=== PATIENT | male | born 1980 | race African-American/Black ===

== ENCOUNTER 2021-06-04 18:55 | Emergency (ER) | payer OTHER, SELFPAY ==
[2021-06-04 19:47] VITALS: BP 144/87; PULSE 72; RESP 18; TEMP 36.4; O2SAT 100
[2021-06-04 21:55] VITALS: BP 134/84; PULSE 66; RESP 17; TEMP 36.3; O2SAT 100
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
[2021-06-04 22:23] VITALS: BP 138/74; PULSE 68; RESP 15; O2SAT 100
== END 2021-06-04 22:23 | disposition home or self-care (01) ==
PROVIDERS: Emergency Provider Emergency Medicine
DX: S06.0X0A Concussion without loss of consciousness, initial encounter (principal); V49.50XA Passenger injured in collision with unspecified motor vehicles in traffic accident, initial encounter
CPT/HCPCS: 99282

== ENCOUNTER 2022-03-24 18:28 | Emergency (ER) | payer SELFPAY ==
[2022-03-24 18:37] VITALS: BP 142/81; PULSE 79; RESP 16; TEMP 36.5; O2SAT 99
--- NOTE | 2022-03-24 18:44 | ED.SKABFB ---
HPI - Skin/Abscess/Foreign Bdy General Chief complaint: Skin/Abscess/Foreign Body Stated complaint: rash Time Seen by Provider: 03/24/22 18:44 Source: patient Mode of arrival: ambulatory Limitations: no limitations History of Present Illness HPI narrative: 41-year-old male presented for complaint of rash to both forearms for about 10 days. States is spreading to the back of his neck and behind his knees. He endorses small bumps that are itchy and burning. He denies known contact with poison elis or any changes to soap, detergent, lotion etc. He states he cut grass about 3 weeks ago. Denies lip/tongue or throat swelling, trouble breathing/wheezing. Denies associated fever, nausea, vomiting, and diarrhea, dizziness fevers or chills. MD complaint: rash Related Data Allergies Allergy/AdvReac Type Severity Reaction Status Date / Time No Known Allergies Allergy Verified 03/24/22 18:29 Review of Systems Review of Systems: CONSTITUTIONAL: Denies body aches, fever, chills, or sweats. EYES: Denies visual changes, redness, or discharge. ENT: Denies rhinorrhea, congestion, sore throat, or otalgia. CARDIOVASCULAR: Denies chest pain, palpitations, or edema. RESPIRATORY: Denies cough or dyspnea. GASTROINTESTINAL: Denies abdominal pain, nausea, vomiting, or diarrhea. GENITOURINARY: Denies dysuria or hematuria. SKIN: rash, itching, wounds. MUSCULOSKELETAL: Denies back pain, joint pain, or myalgia. NEUROLOGIC: Denies headache, numbness, tingling, or weakness. PSYCH: Denies depression or anxiety. PMFSH Comments At time of signature, I have reviewed and agree with nursing past medical, surgical, social and family history unless otherwise noted. Please see nursing chart for further information. There is no relevant family history pertinent to the presenting complaint Exam Narrative: GENERAL: Well-appearing EYES: conjunctivae clear, and EOMI. ENT: Mucous membranes moist. Oropharynx without edema, erythema or lesions. CHEST: Clear to auscultation. No respiratory distress. HEART: Regular rate and rhythm. SKIN: Warm, dry. Patches of erythematous papular rash to dorsal surface of bilateral arms, sparing hands and deltoids c/w contact dermatitis. Rash noted to neck at collar. Appears to be at sun exposed areas. No oozing. NEURO: Alert and oriented x3. Course Course Emergency Course: Patient is aware of diagnosis, understands and agrees to treatment plan. Anticipatory guidance given. Patient agrees to follow-up as directed and is aware of reasons to seek care at the emergency department. Portions of this record may have been created with voice recognition software Level of Care: Express Care Visit Vital Signs Vital signs: Vital Signs Temperature 97.7 F 03/24/22 18:37 Pulse Rate 79 03/24/22 18:37 Respiratory Rate 16 03/24/22 18:37 Blood Pressure 142/81 H 03/24/22 18:37 Pulse Oximetry 99 03/24/22 18:37 Oxygen Delivery Room Air 03/24/22 18:37 Temperature 97.7 F 03/24/22 18:37 Pulse Rate 79 03/24/22 18:37 Respiratory Rate 16 03/24/22 18:37 Blood Pressure 142/81 H 03/24/22 18:37 Pulse Oximetry 99 03/24/22 18:37 Oxygen Delivery Room Air 03/24/22 18:37 Reviewed MDM - Skin/Abscess/Foreign Bdy MDM Narrative Medical decision making narrative: Does not appear at this time to be erythema multiforme, bullous, SJS, TEN Patient looks well, nontoxic afebrile; no respiratory compromise, appropriate for initial outpatient treatment; discussed the importance of follow-up, patient agrees. Advised to avoid the hot outdoor weather for about 2 days. Instructed patient to go to nearest ER immediately for any worsening symptoms including but not limited to: fever, spreading rash, pain, sore throat, headache, dizziness, chest pain, trouble breathing, or any symptoms concerning to the patient. Differential Diagnosis Differential diagnosis: Likely abscess of skin or subcutaneous tissue, urticaria, herpes zoster
== END 2022-03-24 18:57 | disposition home or self-care (01) ==
PROVIDERS: Emergency Provider Nurse Practitioner Family
DX: L23.9 Allergic contact dermatitis, unspecified cause (principal)
CPT/HCPCS: 99213; G0463

== ENCOUNTER 2022-05-13 18:33 | Emergency (ER) | payer SELFPAY ==
--- NOTE | 2022-05-13 18:34 | ED.SKABFB ---
HPI - Skin/Abscess/Foreign Bdy General Chief complaint: Skin/Abscess/Foreign Body Stated complaint: rash Time Seen by Provider: 05/13/22 19:02 Source: patient and RN notes reviewed Mode of arrival: ambulatory Limitations: no limitations History of Present Illness HPI narrative: 41-year-old male presents concern for generalized itchy rash. Reports rash to both arms, legs, face, neck. He reports it is itchy. He reports that started a week ago and continues to get worse. Reports he had a similar rash 1 month ago that was treated with steroids. He denies any swollen lips, swollen tongue, trouble breathing. He reports he changed his soap to Dove soap, he has not changed his laundry detergent to a free and clear laundry detergent. 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 MD complaint: rash Related Data Allergies Allergy/AdvReac Type Severity Reaction Status Date / Time No Known Allergies Allergy Verified 03/24/22 18:29 Review of Systems Review of Systems: CONSTITUTIONAL: Denies malaise, chills, sweats, or fever. EYES: Denies redness, or discharge. ENT: Denies rhinorrhea, congestion, swollen lips, swollen tongue CARDIOVASCULAR: Denies chest pain, palpitations, or edema. RESPIRATORY: Denies cough or dyspnea. GASTROINTESTINAL: Denies abdominal pain, nausea, vomiting SKIN: Reports itchy rash on both arms, legs, face, neck MUSCULOSKELETAL: Denies joint pain or myalgia. NEUROLOGIC: Denies headache. All systems reviewed & are unremarkable except as noted in HPI and below PMFSH Comments At time of signature, agree with nursing past medical, surgical, social and family history. There is no relevant family history pertinent to the presenting complaint Exam Narrative: GENERAL: Well-appearing, well-nourished, and in no acute distress. HEAD: Normocephalic, atraumatic. EYES: PERRLA, conjunctivae clear, and EOMI. ENT: Mucous membranes moist. Oropharynx without edema, erythema or lesions. NECK: Supple. No lymphadenopathy CHEST: Clear to auscultation. No respiratory distress. HEART: Regular rate and rhythm. SKIN: Warm, dry. Diffuse erythematous papular rash noted to bilateral arms, legs, face, neck NEURO: Alert and oriented x3. PSYCH: Normal mood and affect Course Course Emergency Course: Patient is aware of diagnosis, understands and agrees to treatment plan. Anticipatory guidance given. Patient agrees to follow-up as directed and is aware of reasons to seek care at the emergency department. Portions of this record may have been created with voice recognition software Level of Care: Express Care Visit Vital Signs Vital signs: Reviewed. MDM - Skin/Abscess/Foreign Bdy MDM Narrative Medical decision making narrative: Does not appear at this time to be erythema multiforme, bullous, SJS, TEN; no evidence at this time to suggest RMSF, endocarditis or Lyme disease; patient looks well, nontoxic and is tolerating oral intake; no neurologic signs or symptoms; no headache, photophobia or neck pain; afebrile; appropriate for initial outpatient treatment; discussed the importance of follow-up, patient agrees; question, viral exanthema, contact dermatitis, allergic dermatitis, eczema, urticaria, scabies. No soft palate or uvula edema, no tongue, lip edema or other mucosal involvement, no respiratory compromise, no stridor, no wheezing, no wheezing, no history of syncope, no hypotension, no nausea, vomiting, or diarrhea. Instructed patient to go to nearest ER immediately for any worsening symptoms including but not limited to: fever, spreading rash, pain, sore throat, headache, dizziness, chest pain, trouble breathing, or any symptoms concerning to the patient. Critical Care Time Critical Care Time Critical Care Time: No Discharge Plan Discharge Clinical Impression: Contact dermatitis Patient Disposition: Home, Self-Care Condition: Stable In
[2022-05-13 18:38] VITALS: BP 132/84; PULSE 69; RESP 16; TEMP 36.8; O2SAT 99
[2022-05-13 18:46] VITALS: BP 132/84; PULSE 69; RESP 16; TEMP 36.8; O2SAT 99
== END 2022-05-13 19:14 | disposition home or self-care (01) ==
PROVIDERS: Emergency Provider Nurse Practitioner
DX: L25.9 Unspecified contact dermatitis, unspecified cause (principal)
CPT/HCPCS: 99213; G0463